=== PATIENT | female | born 1985 | race Caucasian/White ===

== ENCOUNTER 2018-09-11 19:26 | Emergency (ER) | payer SELFPAY ==
--- NOTE | 2018-09-11 21:50 | ER Document Report ---
ED Medical Screen (RME) - General Chief Complaint: Chest Pain Stated Complaint: CHEST PAINS Time Seen by Provider: 09/11/18 21:41 Primary Care Provider: CRISTIANA WALDEN CNM [Primary Care Provider] - Follow up as needed Notes: Patient is a 33-year-old female who presents to the emergency department with a chief complaint of chest pain. She states that her pain started this morning and it was in her mid sternum area she states that felt like someone took a broom and stabbed her from the front of her chest to the back. She also states that she feels nauseous. She has a past medical history of a mitral valve prola pse, PSVT, cardiogenic syncope, chronic bronchitis, and H. pylori. Exam: S1-S2, breath sounds clear bilaterally. I have greeted and performed a rapid initial assessment of this patient. A comprehensive ED assessment and evaluation of the patient, analysis of test results and completion of medical decision making process will be conducted by an additional ED providers. TRAVEL OUTSIDE OF THE [place] IN LAST 30 DAYS: No - Related Data Allergies/Adverse Reactions: No Known Allergies Allergy (Verified 02/22/15 14:48) Past Medical History - Past Medical History Cardiac Medical History: Denies: Hx Coronary Artery Disease, Hx Heart Attack, Hx Hypertension Pulmonary Medical History: Reports: Hx Asthma - Past child, Hx Bronchitis Denies: Hx COPD, Hx Pneumonia Neurological Medical History: Denies: Hx Cerebrovascular Accident, Hx Seizures Musculoskeltal Medical History: Denies Hx Arthritis Psychiatric Medical History: Denies: Hx Depression Past Surgical History: Reports: Hx Cholecystectomy, Hx Gynecologic Surgery - d and c, Hx Hysterectomy - Immunizations Immunizations up to date: No Hx Diphtheria, Pertussis, Tetanus Vaccination: Yes Physical Exam - Vital signs Vitals: Temp Pulse Resp BP Pulse Ox 99.1 F 88 16 118/69 97 09/11/18 19:47 09/11/18 19:47 09/11/18 19:47 09/11/18 19:47 09/11/18 19:47 Course - Vital Signs Vital signs: Temp Pulse Resp BP Pulse Ox 99.1 F 88 16 118/69 97 09/11/18 19:47 09/11/18 19:47 09/11/18 19:47 09/11/18 19:47 09/11/18 19:47 Doctor's Discharge - Discharge Referrals: CRISTIANA WALDEN CNM [Primary Care Provider] - Follow up as needed
[2018-09-11 22:27] LABS: ABSOLUTE EOSINOPHILS # (AUTO) 0.2 10^3/uL (0.0-0.6); ABSOLUTE LYMPHOCYTES (AUTO) 1.4 10^3/uL (0.5-4.7); ABSOLUTE MONOCYTES (AUTO) 0.5 10^3/uL (0.1-1.4); ABSOLUTE NEUT (AUTO) 7.7 10^3/uL (1.7-8.2); BASOPHILS % (AUTO) 0.4 % (0-2); EOSINOPHILS % (AUTO) 1.7 % (0-6); HEMATOCRIT 42.4 % (36.0-47.0); HEMOGLOBIN 14.7 g/dL (12.0-15.5); LYMPHOCYTES % (AUTO) 14.6 % (13-45); MEAN CORPUSCULAR HEMOGLOBIN 33.9 pg (27.0-33.4); MEAN CORPUSCULAR HGB CONC 34.5 g/dL (32.0-36.0); MEAN CORPUSCULAR VOLUME 98 fl (80-97); MONOCYTES % (AUTO) 4.8 % (3-13); PLATELET COUNT 248 10^3/uL (150-450); RED BLOOD COUNT 4.32 10^6/uL (3.72-5.28); SEGMENTED NEUTROPHILS % (AUTO) 78.5 % (42-78); TOTAL CELLS COUNTED % (AUTO) 100 %; WHITE BLOOD COUNT 9.8 10^3/uL (4.0-10.5)
[2018-09-11 22:44] LABS: ALANINE AMINOTRANSFERASE 116 U/L (9-52); ALBUMIN 4.4 g/dL (3.5-5.0); ALKALINE PHOSPHATASE 97 U/L (38-126); ANION GAP 10 (5-19); ASPARTATE AMINO TRANSFERASE 70 U/L (14-36); BILIRUBIN,DIRECT 0.2 mg/dL (0.0-0.4); BILIRUBIN,TOTAL 0.6 mg/dL (0.2-1.3); BLOOD UREA NITROGEN 16 mg/dL (7-20); CALCIUM 9.4 mg/dL (8.4-10.2); CARBON DIOXIDE 24 mmol/L (22-30); CHLORIDE 104 mmol/L (98-107); CREATINE KINASE 68 U/L (30-135); GLUCOSE 93 mg/dL (75-110); POTASSIUM 3.9 mmol/L (3.6-5.0); SODIUM 138.1 mmol/L (137-145); TOTAL PROTEIN 6.9 g/dL (6.3-8.2)
--- NOTE | 2018-09-11 22:45 | RADIOLOGY REPORT (SQ) ---
EXAM DESCRIPTION: XR CHEST 1 VIEW COMPLETED DATE/TME: 09/11/2018 21:50 CLINICAL HISTORY: 33 years, Female, chest pain COMPARISON: Prior study from 01/28/2014 NUMBER OF VIEWS: One TECHNIQUE: Single view of the chest was obtained. LIMITATIONS: None. FINDINGS: Cardiac and mediastinal contours are normal in appearance. Lungs are clear. No pleural effusion or pneumothorax. IMPRESSION: No acute disease. copyright 2010 [employer]- All Rights Reserved
[2018-09-11 22:52] LABS: CREATINE KINASE MB 0.34 ng/mL (<4.55)
[2018-09-11 22:58] LABS: TROPONIN I < 0.012 ng/mL
--- NOTE | 2018-09-12 02:02 | ER Document Report ---
ED General - General Chief Complaint: Chest Pain Stated Complaint: CHEST PAINS Time Seen by Provider: 09/11/18 21:41 Primary Care Provider: CRISTIANA WALDEN CNM [Primary Care Provider] - Follow up in 3-5 days Notes: Patient is a pleasant 33-year-old old female presents with complaint of sharp pain just right to the sternal border of her chest. Patient says that she has been coughing for the last week and started noticing pain today. She says it is worse with breathing and movement. She also worked as when she pushes over the area on her chest. No history of coronary disease. She does have history of mitral valve prolapse and paroxysmal SVT. No recent runs of SVT. No fevers. No vomiting. No leg pain or leg swelling. No history of PE or DVT. No other complaints at this time. TRAVEL OUTSIDE OF THE [place] IN LAST 30 DAYS: No - Related Data Allergies/Adverse Reactions: No Known Allergies Allergy (Verified 02/22/15 14:48) Past Medical History - Social History Smoking Status: Never Smoker Frequency of alcohol use: Rare Drug Abuse: None Family History: Other - Asthma Patient has suicidal ideation: No Patient has homicidal ideation: No - Past Medical History Cardiac Medical History: Denies: Hx Coronary Artery Disease, Hx Heart Attack, Hx Hypertension Pulmonary Medical History: Reports: Hx Asthma - Past child, Hx Bronchitis Denies: Hx COPD, Hx Pneumonia Neurological Medical History: Denies: Hx Cerebrovascular Accident, Hx Seizures Renal/ Medical History: Denies: Hx Peritoneal Dialysis Musculoskeletal Medical History: Denies Hx Arthritis Psychiatric Medical History: Denies: Hx Depression Past Surgical History: Reports: Hx Cholecystectomy, Hx Gynecologic Surgery - d and c, Hx Hysterectomy - Immunizations Immunizations up to date: No Hx Diphtheria, Pertussis, Tetanus Vaccination: Yes Review of Systems - Review of Systems Notes: My Normal Review Basic REVIEW OF SYSTEMS: CONSTITUTIONAL : Denies fever, chills, or sweats. Denies recent illness. EENT: Denies eye, ear, throat, or mouth pain or symptoms. Denies nasal or sinus congestion. CARDIOVASCULAR: Chest pain. RESPIRATORY: Denies cough, cold, or chest congestion. Denies shortness of breath, difficulty breathing, or wheezing. GASTROINTESTINAL: Denies abdominal pain. Denies nausea, vomiting, or diarrhea. MUSCULOSKELETAL: Denies neck or back pain or joint pain or swelling. SKIN: Denies rash or skin lesions. NEUROLOGICAL: Denies altered mental status or loss of consciousness. Denies headache. Denies weakness or paralysis or loss of use of either side. Denies problems with gait or speech. Denies sensory or motor loss. ALL OTHER SYSTEMS REVIEWED AND NEGATIVE. Physical Exam - Vital signs Vitals: Temp Pulse Resp BP Pulse Ox 99.1 F 88 16 118/69 97 09/11/18 19:47 09/11/18 19:47 09/11/18 19:47 09/11/18 19:47 09/11/18 19:47 - Notes Notes: General Appearance: Well nourished, alert, cooperative, no acute distress, no obvious discomfort. Well-appearing. Vitals: reviewed, See vital signs table. Head: no swelling or tenderness to the head Eyes: PERRL, EOMI, Conjuctiva clear Chest wall: Easily reproducible pain palpation over right anterior chest wall. Patient says the pain I create with palpation to the same pain that she presented with to the ED. Lungs: No wheezing, No rales, No rhonci, No accessory muscle use, good air exchange bilaterally. Heart: Normal rate, Regular rythm, No murmur, no rub Abdomen: Normal BS, soft, No rigidity, No abdominal tenderness, No guarding, no rebound, no abdominal masses, no organomegaly Extremities: good pulses in all extremities, no swelling or tenderness in the extremities, no edema. Skin: warm, dry, appropriate color, no rash Neuro: speech clear, oriented x 3, normal affect, responds appropriately to questions. Course - Re-evaluation Re-evalutation: 09/12/18 05:04 I suspect patient has muscle skeletal chest pain likely related to the recent coughing that she has been having. Her lung sarabia are clear. She has negative EKG. Her chest x-ray does not show any concerning findings. Pain is easily reproducible palpation. Feel she safe to be discharged home. I do not suspect PE as she is not cardiac, and no tachypnea, not hypoxemic, and her pain is easily reproducible to palpation. Feel that she is safe to be discharged at this time I strongly encouraged her return to ER if she has worsening pain, fevers, difficulty breathing, or if she feels like she is worsening in any way. Patient agrees with plan and will be discharged home. Dictation of this chart was performed using voice recognition software; therefore, there may be some unintended grammatical errors. - Vital Signs Vital signs: Temp Pulse Resp BP Pulse Ox 99.1 F 87 20 110/63 96 09/12/18 02:32 09/12/18 02:32 09/12/18 02:32 09/12/18 02:32 09/12/18 02:32 - Laboratory Result Diagrams: 09/11/18 22:12 09/11/18 22:12 Laboratory results interpreted by me: 09/11/18 09/11/18 22:12 22:12 MCV 98 H MCH 33.9 H Seg Neutrophils % 78.5 H AST 70 H ALT 116 H Discharge - Discharge Clinical Impression: Chest pain Condition: Good Disposition: HOME, SELF-CARE Additional Instructions: Based on your exam I suspect that the pain in chest is related to inflammation of the cartilage in your chest. This often times happens because of frequent coughing which you have had over the last week. Treatment is with Tylenol and ibuprofen. He can take Tylenol 500 mg every 4 hours. Take ibuprofen 600 mg ev raudel 6 hours as needed for pain. Please rest over the next 24 hours. Please still have a low threshold to return to the ER if you have worsening pain, difficulty breathing, or if you feel like you are worsening in any way. Forms: Return to Work Referrals: CRISTIANA WALDEN CNM [Primary Care Provider] - Follow up in 3-5 days
[2018-09-12 02:34] VITALS: BP 110/63
--- NOTE | 2018-09-12 08:23 | EKG REPORT ---
SEVERITY:- NORMAL ECG - SINUS RHYTHM : Confirmed by: Brendan Bolton MD 12-Sep-2018 08:23:05
== END 2018-09-12 02:36 | disposition home or self-care (01) ==
LOC: ER 19:26
DX: R07.9 Chest pain, unspecified (principal); R05 Cough; J45.909 Unspecified asthma, uncomplicated
CPT/HCPCS: 36415; 71045; 80053; 82550; 82553; 84484; 85025; 93005; 93010; 99284